=== PATIENT | male | born 1955 | race Two or more races ===

== ENCOUNTER 2020-01-08 14:03 | Emergency (ER) | payer MEDICAID ==
[~2020-01-08] VITALS: Ht 182.9 cm; Wt 92.0 kg
[2020-01-08 14:24] VITALS: BP 126/57
[2020-01-08] MEDS ORDERED: TRAM300C3 PO (14:31)
[2020-01-08] MEDS ORDERED: OLAN10TA3 PO (14:31)
[2020-01-08] MEDS ORDERED: SERT25TA PO (14:31)
[2020-01-08] MEDS ORDERED: LORAZEPAM 1MG TABLET PO ONE (16:00)
[2020-01-08] MEDS ORDERED: OLANZAPINE 10MG TABLET PO SCH (16:00)
[2020-01-08 16:13] LABS: BASOPHILS % 1.1 % (0.0-2.0); EOSINOPHILS % 1.1 % (0.0-5.0); HEMATOCRIT. 53.4 % (42.0-52.0); HEMOGLOBIN. 18.9 g/dL (14.0-18.0); LYMPHOCYTES % 20.1 % (20.0-50.0); MEAN CORPUSCULAR HEMOGLOBIN 31.4 pg (28.0-32.0); MEAN CORPUSCULAR VOLUME 88.5 fL (80.0-94.0); MEAN PLATELET VOLUME 8.7 fl (7.4-10.4); MONOCYTES % 10.6 % (2.0-8.0); NEUTROPHILS % 67.1 % (40.0-76.0); PLATELET 184 x1000/uL (130-400); RED BLOOD CELL COUNT 6.03 mill/uL (4.7-6.1); RED CELL DISTRIBUTION WIDTH 13.3 % (11.6-14.6)
[2020-01-08 16:24] LABS: CHLORIDE 106 mEq/L (98-107)
[2020-01-08 16:29] LABS: ETHANOL BLOOD < 10 mg/dL
== END 2020-01-08 19:18 | disposition home or self-care (01) ==
LOC: ER 14:03
DX: F32.3 Major depressive disorder, single episode, severe with psychotic features (principal); R45.851 Suicidal ideations; R79.89 Other specified abnormal findings of blood chemistry; I10 Essential (primary) hypertension
CPT/HCPCS: 36415; 80053; 80307; 80320; 80329; 85025; 93005; 99284; G0480